=== PATIENT | male | born 1960 | race Caucasian/White ===

== ENCOUNTER 2017-12-11 17:16 | Emergency (ER) | payer OTHER ==
[~2017-12-11] VITALS: Ht 167.6 cm; Wt 72.6 kg
[~2017-12-11 17:16] MED LIST: AMOXICILLIN/POTASSIU PO; AUGMENTIN 875875 MG PO; CLEOCIN HCL300 MG PO; HYDROCODON-ACE1 EAC5 PO; LORTAB 7.5/5001 TA3 PO; NOHOMEMEDICATIONS
[2017-12-11 17:26] VITALS: BP 147/94
[2017-12-11] MEDS ORDERED: LISINOPRIL5 MG PO (17:28)
[2017-12-11] MEDS ORDERED: KEFLEX500 M1 PO (17:28)
== END 2017-12-11 17:50 | disposition home or self-care (01) ==
LOC: M.ERS 17:16
DX: S61.412A Laceration without foreign body of left hand, initial encounter (principal); W26.0XXA Contact with knife, initial encounter; Y93.89 Activity, other specified; Y92.89 Other specified places as the place of occurrence of the external cause; Y99.8 Other external cause status

== ENCOUNTER → 2020-02-21 | Outpatient (CLI) | payer OTHER ==
[~2020-02-21] MED LIST changes: +KEFLEX500 M1 PO; +LISINOPRIL5 MG PO
== END ==
LOC: M.RAD 15:07
DX: M19.012 Primary osteoarthritis, left shoulder (principal); M25.562 Pain in left knee; G89.29 Other chronic pain